=== PATIENT | male | born 1985 | race Two or more races ===

== ENCOUNTER 2016-12-16 16:29 | Emergency (ER) | payer OTHER ==
[~2016-12-16] VITALS: Ht 182.9 cm; Wt 95.3 kg
[2016-12-16 16:41] VITALS: BP 143/86
--- NOTE | 2016-12-16 16:50 | PHYS DOC ---
Past Medical History Past Medical History: No Pertinent History Smoking: Less than 1pk/day Alcohol Use: Occasionally Drug Use: None Adult General Chief Complaint Chief Complaint: LACERATION/AVULSION HPI HPI Patient is a 31 year old male who presents with left thumb laceration at 1500. The patient was using a drill when the drill bit broke off and punctured the thumb near the base on the palmar side. He denies any numbness, tingling, or pain at this time. His tetanus immunization is not up-to-date. He does not have a PCP. Review of Systems Review of Systems Constitutional: Denies fever or chills. [] Musculoskeletal: Denies back pain or joint pain. Reports left thumb pain. Integument: Denies rash or skin lesions. Reports left thumb laceration. Neurologic: Denies focal weakness or sensory changes. [] Current Medications Current Medications Current Medications Medications (Trade) Dose Ordered Sig/Torrey Start Time Stop Time Status Last Admin Dose Admin Diphtheria/ Tetanus/Acell Pertussis (Boostrix) 0.5 ml ONCE ONCE 12/16/16 17:00 12/16/16 17:01 DC 12/16/16 16:57 0.5 ML Lidocaine/Sodium Bicarbonate (Buffered Lidocaine 1%) 20 ml 1X ONCE 12/16/16 17:00 12/16/16 17:01 DC 12/16/16 16:56 20 ML Allergies Allergies Allergies Coded Allergies Type Severity Reaction Last Updated Verified No Known Drug Allergies 12/16/16 No Physical Exam Physical Exam Constitutional: Well developed, well nourished, no acute distress, non-toxic appearance. [] HENT: Normocephalic, atraumatic, oropharynx moist. [] Eyes: PERRLA, EOMI, conjunctiva normal, no discharge. [] Skin: Warm, dry, no erythema, no rash. There is a 2 cm laceration at the base of the left thumb on the palmar surface. Extremities: No tenderness, ROM intact, no edema. 2+ radial and ulnar pulses. Less than 2 second capillary refill distally. Light touch sensation intact distally. Neurologic: Alert and oriented X 3, normal motor function, normal sensory function, no focal deficits noted. [] Psychologic: Affect normal, judgement normal, mood normal. [] Current Patient Data Vital Signs Vital Signs Date Time Temp Pulse Resp B/P Pulse Ox O2 Delivery O2 Flow Rate FiO2 3/4/17 16:41 98.6 62 18 99 Room Air 98.6 EKG EKG [] Radiology/Procedures Radiology/Procedures [] Course & Med Decision Making Course & Med Decision Making Pertinent Labs and Imaging studies reviewed. (See chart for details) Patient presents with a 2 cm laceration to the base of the left thumb on the palmar surface. The wound was anesthetized with 1% buffered lidocaine. The wound was explored for foreign bodies and none were identified. There was no tendon laceration. The wound was cleaned using clear hexedine scrub and copiously irrigated using normal saline. Wound edges were well approximated using 5 simple interrupted sutures using 5-0 nylon. The patient tolerated the procedure well and bleeding was controlled. A sterile dressing was applied. Dragon Disclaimer Dragon Disclaimer This electronic medical record was generated, in whole or in part, using a voice recognition dictation system. Departure Departure Impression: Primary Impression: Finger laceration Disposition: 01 HOME, SELF-CARE Condition: STABLE Patient Instructions: Sutured Wound Care, [id number] Additional Instructions: Your wound was closed with nonabsorbable sutures. The sutures may get wet, but please do not submerge them in water. Please clean the wound with soap and water only. Do not use peroxide or rubbing alcohol. Cover the wound with antibiotic ointment and a bandage. Follow-up with a primary care provider in 10 days to have your stitches removed. Return to emergency department if you have redness, swelling, or yellow/green drainage from the wound. Problem Qualifiers Primary Impression: Finger laceration Encounter type: initial encounter Qualified Code: S61.219A - Laceration without foreign body of unspecified finger without damage to nail, initial encounter NEERU CHAMPAGNE Dec 16, 2016 16:50
[2016-12-16] MEDS ORDERED: LIDOCAINE 1% / SOD BICARB 8.4% 20 ML VIAL. IJ ONE (17:00)
[2016-12-16] MEDS ORDERED: DIPHTH,PERTUSS(ACELL),TET TOX 0.5 ML DISP.SYRIN. VAX IM ONE (17:00)
== END 2016-12-16 18:40 | disposition home or self-care (01) ==
LOC: ER 16:29 → EDSEX 16:29 → ER 18:40
DX: S61.012A Laceration without foreign body of left thumb without damage to nail, initial encounter (principal); F17.200 Nicotine dependence, unspecified, uncomplicated; W29.8XXA Contact with other powered hand tools and household machinery, initial encounter; Y93.89 Activity, other specified; Y92.89 Other specified places as the place of occurrence of the external cause; Y99.8 Other external cause status
CPT/HCPCS: 12001; 90471; 90715; 99283-25